=== PATIENT | male | born 1990 | race Caucasian/White ===

== ENCOUNTER 2016-04-22 22:52 | Emergency (ER) | payer MEDICAID ==
[~2016-04-22] VITALS: Ht 180.3 cm; Wt 104.3 kg
[~2016-04-22 22:52] MED LIST: BENTYL10 M1 PO
--- NOTE | 2016-04-22 23:30 | Emergency Room Report ---
History of Present Illness Time Seen by [id number] Presenting Problem in Triage Pt arrived:Walked Presenting Problem:SEVERE RT ARM PAIN. INJURED IT YESTURDAY WRESTLING WITH A FRIEND. 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 N Clinical Suspician of Infection? N Mental Status: 1 - Regular (Normal Baseline) Sepsis Risk:Possible Sepsis Risk Have you (or family members/close friends) recently traveled outside the [place]? N If Yes, where/when: Have you had exposure to infectious disease within the past month? N TB? Other? Specify: Source patient, RN notes reviewed, old records Exam Limitations no limitations Comment wrestling last pm with injury to rt forearm and elbow with swelling and dec rom Cardiac Chest Pain Chest pain indicative of cardiac No Timing/Duration this evening Severity moderate ALLERGIES Coded Allergies: ibuprofen (Intermediate, I-HIVES 03/05/15) tramadol (From [facility]) (Intermediate, I-HIVES 03/05/15) Home Medications Active Scripts DICYCLOMINE HCL (Bentyl) 10 MG PO QID PRN cramping #10 CAP Prov: 04/06/16 History Medical History General CAD? No Angina: No [place]: No Hypertension? No Hyperlipidemia? No CHF? No DVT? No PE? No COPD? No Asthma? No Anemia? No GERD? No Gastric ulcers? No GI Bleed? No Hernia? No Thyroid Problems? No Hypothyroidism? No CVA? No Seizures? No Diabetes? No Renal Insuffiency? No End Stage Renal Disease? No UTI? No Stones? No BPH? No GB Disease: No Nephritic Syndrome? No Asplenia? No Hepatitis? No Sickle Cell Disease? No Arthritis? No Migraines? No Cataracts? No Glaucoma? No MRSA? No HIV? No TB? No Anxiety? No Depression? No Cancer? No More? No Immunization Hx DT/Tetanus > 10 Years Ago Surgical Hx Previous Surgery?Y R HAND Social History Smoking Hx Smoker: Current Every Day Smoker Tobacco: Yes Type Cigarettes Packs/day < 1 Pack Alcohol Alcohol: No Drugs none Review of Systems All Other Systems Reviewed and Negative Constitutional denies fever Eyes denies blurred vision ENT denies: ear pain, epistaxis, throat pain. Respiratory denies cough, denies shortness of breath, denies wheezing Cardiovascular denies chest pain, denies palpitations, denies syncope Gastrointestinal denies abdominal pain, denies diarrhea, denies vomiting Genitourinary denies: dysuria, frequency, hesitancy, hematuria. Musculoskeletal see HPI, denies back pain, joint pain, joint swelling, denies neck pain Skin denies rash Psychiatric/Neurological denies headache, denies seizure Physical Exam Vital Signs Vital Signs Date Time Temp Pulse Resp B/P Pulse O2 O2 Flow FiO2 Ox Delivery Rate 04/22 2258 109 21 139/100 99 - WBC >12,000 or <4,000 or 10% bands? 2 or more SIRS Criteria Met? B/P:139/100 MAP:113 Creatinine >2.0? UA output<0.5ml/kg/hr for 2 hrs? Platelet count >100,000? Lactate >2.0mmol/1? INR >1.2 or PTT > than 60 sec? Evidence of Organ Dysfunction? Provider documented clinical suspician of infection? N Sepsis Criteria Count: 2 Sepsis Risk: Possible Sepsis Risk General Appearance no apparent distress Eye Exam - bilateral eye PERRL, bilateral eye EOMI Ear, Nose, Throat normal ENT inspection Neck supple Respiratory Status No: respiratory distress. 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 No Results/Orders Current Medication Orders Sig/Roney Start time Last Medication Dose Route Stop Time Status Admin Acetaminophen/ 1 ARACELI ONCE ONE 04/22 2344 DCr Codeine Phosphate PO 04/22 2345 Prednisone 20 MG ONCE ONE 04/22 2344 DC PO 04/22 2345 Orders Procedure Date/time Status STABILIZE JOINT 04/22 2345 Active HUMERUS-RT 04/23 2307 Active FOREARM-RT 04/23 2307 Active ELBOW-RT-3 VIEWS 04/23 2307 Active XRAY/CT/US XRAY/CT/US XRAY elbow, forearm, upper arm XR interpretation by reviewed by me Xray Results no fracture seen Departure Departure Time of Disposition 2342 Disposition DC Home or Self Care(routine) Clinical Impression Primary Impression: Elbow sprain Qualifiers: Encounter type: initial encounter Laterality: right Qualified Code: S53.401A - Unspecified sprain of right elbow, initial encounter Secondary Impressions: Medial epicondylitis of elbow Qualifiers: Laterality: right Qualified Code: M77.01 - Medial epicondylitis, right elbow Condition STABLE Referrals Yvon Kendrick MD Patient Instructions DI for Medial Epicondylitis Additional Instructions see pcp and ortho for follow up Discharge Counseling Counseled pt/family regarding diagnosis, test results, medications/RX, follow up needs Prescriptions Current Visit Scripts Prednisone (Prednisone 20MG) 20 MG PO BID #10 TAB ED Critical Care Critical Care No at 2347
--- NOTE | 2016-04-22 23:30 | Emergency Room Report ---
History of Present Illness Time Seen by [id number] Presenting Problem in Triage Pt arrived:Walked Presenting Problem:SEVERE RT ARM PAIN. INJURED IT YESTURDAY WRESTLING WITH A FRIEND. 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 N Clinical Suspician of Infection? N Mental Status: 1 - Regular (Normal Baseline) Sepsis Risk:Possible Sepsis Risk Have you (or family members/close friends) recently traveled outside the [place]? N If Yes, where/when: Have you had exposure to infectious disease within the past month? N TB? Other? Specify: Source patient, RN notes reviewed, old records Exam Limitations no limitations Comment wrestling last pm with injury to rt forearm and elbow with swelling and dec rom Cardiac Chest Pain Chest pain indicative of cardiac No Timing/Duration this evening Severity moderate ALLERGIES Coded Allergies: ibuprofen (Intermediate, I-HIVES 03/05/15) tramadol (From [facility]) (Intermediate, I-HIVES 03/05/15) Home Medications Active Scripts DICYCLOMINE HCL (Bentyl) 10 MG PO QID PRN cramping #10 CAP Prov: 04/06/16 History Medical History General CAD? No Angina: No [place]: No Hypertension? No Hyperlipidemia? No CHF? No DVT? No PE? No COPD? No Asthma? No Anemia? No GERD? No Gastric ulcers? No GI Bleed? No Hernia? No Thyroid Problems? No Hypothyroidism? No CVA? No Seizures? No Diabetes? No Renal Insuffiency? No End Stage Renal Disease? No UTI? No Stones? No BPH? No GB Disease: No Nephritic Syndrome? No Asplenia? No Hepatitis? No Sickle Cell Disease? No Arthritis? No Migraines? No Cataracts? No Glaucoma? No MRSA? No HIV? No TB? No Anxiety? No Depression? No Cancer? No More? No Immunization Hx DT/Tetanus > 10 Years Ago Surgical Hx Previous Surgery?Y R HAND Social History Smoking Hx Smoker: Current Every Day Smoker Tobacco: Yes Type Cigarettes Packs/day < 1 Pack Alcohol Alcohol: No Drugs none Review of Systems All Other Systems Reviewed and Negative Constitutional denies fever Eyes denies blurred vision ENT denies: ear pain, epistaxis, throat pain. Respiratory denies cough, denies shortness of breath, denies wheezing Cardiovascular denies chest pain, denies palpitations, denies syncope Gastrointestinal denies abdominal pain, denies diarrhea, denies vomiting Genitourinary denies: dysuria, frequency, hesitancy, hematuria. Musculoskeletal see HPI, denies back pain, joint pain, joint swelling, denies neck pain Skin denies rash Psychiatric/Neurological denies headache, denies seizure Physical Exam Vital Signs Vital Signs Date Time Temp Pulse Resp B/P Pulse O2 O2 Flow FiO2 Ox Delivery Rate 04/22 2258 109 21 139/100 99 - WBC >12,000 or <4,000 or 10% bands? 2 or more SIRS Criteria Met? B/P:139/100 MAP:113 Creatinine >2.0? UA output<0.5ml/kg/hr for 2 hrs? Platelet count >100,000? Lactate >2.0mmol/1? INR >1.2 or PTT > than 60 sec? Evidence of Organ Dysfunction? Provider documented clinical suspician of infection? N Sepsis Criteria Count: 2 Sepsis Risk: Possible Sepsis Risk General Appearance no apparent distress Eye Exam - bilateral eye PERRL, bilateral eye EOMI Ear, Nose, Throat normal ENT inspection Neck supple Respiratory Status No: respiratory distress. 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 No Results/Orders Current Medication Orders Sig/Roney Start time Last Medication Dose Route Stop Time Status Admin Acetaminophen/ 1 ARACELI ONCE ONE 04/22 2344 DCr Codeine Phosphate PO 04/22 2345 Prednisone 20 MG ONCE ONE 04/22 2344 DC PO 04/22 2345 Orders Procedure Date/time Status STABILIZE JOINT 04/22 2345 Active HUMERUS-RT 04/23 2307 Active FOREARM-RT 04/23 2307 Active ELBOW-RT-3 VIEWS 04/23 2307 Active XRAY/CT/US XRAY/CT/US XRAY elbow, forearm, upper arm XR interpretation by reviewed by me Xray Results no fracture seen Departure Departure Time of Disposition 2342 Disposition DC Home or Self Care(routine) Clinical Impression Primary Impression: Elbow sprain Qualifiers: Encounter type: initial encounter Laterality: right Qualified Code: S53.401A - Unspecified sprain of right elbow, initial encounter Secondary Impressions: Medial epicondylitis of elbow Qualifiers: Laterality: right Qualified Code: M77.01 - Medial epicondylitis, right elbow Condition STABLE Referrals Yvon Kendrick MD Patient Instructions DI for Medial Epicondylitis Additional Instructions see pcp and ortho for follow up Discharge Counseling Counseled pt/family regarding diagnosis, test results, medications/RX, follow up needs Prescriptions Current Visit Scripts Prednisone (Prednisone 20MG) 20 MG PO BID #10 TAB ED Critical Care Critical Care No at 2348
[2016-04-22] MEDS ORDERED: PREDNISONE 20MG20 MG PO (23:45)
[2016-04-22 23:59] VITALS: BP 128/76
--- NOTE | 2016-04-23 14:14 | RADIOLOGY REPORT PS360 ---
ELBOW-RT-3 VIEWS COMPARISON: None HISTORY: Right elbow pain after injury TECHNIQUE: AP lateral and oblique views FINDINGS: There is no fracture or dislocation. The soft tissues are normal and is no abnormal fat pad sign. IMPRESSION: Negative right elbow
--- NOTE | 2016-04-23 14:21 | RADIOLOGY REPORT PS360 ---
FOREARM-RT INDICATION: Right forearm pain injury. After wrestling TECHNIQUE: 2 view right forearm COMPARISON: None available FINDINGS: No acute fracture nor dislocation apparent. . Old fracture fourth metacarpal No obvious radio opaque foreign bodies. Unremarkable soft tissues. IMPRESSION: Right forearm intact. No fracture
--- NOTE | 2016-04-24 14:55 | RADIOLOGY REPORT PS360 ---
HUMERUS-RT COMPARISON: None HISTORY: Right arm pain after injury TECHNIQUE: AP and oblique views FINDINGS: The humeral head and humeral shaft appear intact. The supracondylar humerus appears normal. There is some irregularity of the soft tissues mid arm with apparent dressing in place and possibly this is secondary to a laceration. There are no foreign bodies IMPRESSION: Right humerus negative for fracture
== END 2016-04-23 | disposition home or self-care (01) ==
LOC: ER 22:52
DX: S53.401A Unspecified sprain of right elbow, initial encounter (principal); M77.01 Medial epicondylitis, right elbow; Z72.0 Tobacco use; W51.XXXA Accidental striking against or bumped into by another person, initial encounter; Y92.89 Other specified places as the place of occurrence of the external cause